=== PATIENT | female | born 1990 | race Caucasian/White ===

== ENCOUNTER 2016-09-05 20:09 | Emergency (ER) | payer OTHER ==
[~2016-09-05] VITALS: Ht 170.2 cm; Wt 106.0 kg
[~2016-09-05 20:09] MED LIST: ALBU18HF INHALATION; AZIT250T94 PO; CALC600T11 PO; FERR27TA PO; PRED20TA PO; PREN1TAB49 PO
[2016-09-05 20:11] VITALS: Ht 170.2 cm; Wt 106.0 kg
[2016-09-05] MEDS ORDERED: ACETAMINOPHEN 500 MG TAB PO STA (20:24)
[2016-09-05] MEDS ORDERED: KETOROLAC 60 MG INJ IM STA (20:24)
[2016-09-05] MEDS ORDERED: IBUP-1542 PO (20:37)
[2016-09-05] MEDS ORDERED: PEN500 PO (20:37)
--- NOTE | 2016-09-05 20:45 | ERD ---
ER Documentation Chief Complaint Date/Time DATE: 09/05/16 TIME: 20:39 Chief Complaint SORE THROAT WITH FEVER X 2 WEEKS HPI 26-year-old female presents here in emergency department for complaints of sore throat and fever for 2 weeks. Patient described the pain as throbbing pain, 6/10 , is worse upon swallowing. Patient did not take any medication any medications to help symptoms. Patient denies any sick contacts. Patient does not have any shortness breath or wheezing. Patient does not have any stridor. ROS All systems reviewed and are negative except as per history of present illness. Medications Home Meds Active Scripts Penicillin V Potassium* (Penicillin V K*) 500 Mg Tab, 500 MG PO QID for 10 Days , TAB Prov:HELDER DO NP 09/05/16 Ibuprofen* (Motrin*) 600 Mg Tab, 600 MG PO Q6H Y for PAIN AND OR ELEVATED TEMP, #30 TAB Prov:HELDER DO NP 09/05/16 Albuterol Sulfate* (Ventolin HFA*) 18 Gm Hfa.aer.ad, 2 PUFF INHALATION Q4H, #1 INHALER Prov:BEBA WYATT MD 12/29/15 Azithromycin* (Zithromax*) 250 Mg Tablet, 250 MG PO .ZPACK DIRECTED, #6 TAB TAKE 500 MG (2 TABS) THE FIRST DAY THEN 250 MG (1 TAB) DAYS 2-5 Prov:BEBA WYATT MD 12/29/15 Prednisone* (Prednisone*) 20 Mg Tab, 40 MG PO DAILY for 5 Days, TAB Prov:BEBA WYATT MD 12/29/15 Reported Medications Calcium Carbonate* (Calcium Carbonate*) 600 MG Ca Tab, 600 MG PO, TAB 11/11/14 Vits W-Ca,Fe,Fa(<1MG) () 1 Tab Tablet, 1 PO DAILY 08/04/11 Ferrous Sulfate (Iron) 1 Tab Tablet, 1 PO DAILY 08/04/11 Allergies Allergies: Coded Allergies: No Known Drug Allergies (Verified Allergy, Unknown, 12/29/15) PMhx/Soc Medical and Surgical Hx: pt denies Medical Hx, pt denies Surgical Hx History of Surgery: No Anesthesia Reaction: No Hx Neurological Disorder: No Hx Respiratory Disorders: No Hx Cardiac Disorders: No Hx Psychiatric Problems: No Hx Miscellaneous Medical Probl: No Hx Alcohol Use: No Hx Substance Use: No Hx Tobacco Use: No Smoking Status: Never smoker FmHx Family History: No coronary disease, No diabetes, No other Physical Exam Vitals Vital Signs Date Time Temp Pulse Resp B/P Pulse Ox O2 Delivery O2 Flow Rate FiO2 09/05/16 21:03 100.3 105 16 122/78 98 Room Air 09/05/16 20:11 99.8 130 18 127/80 98 Physical Exam GENERAL: The patient is well developed and appropriate for usual state of health, in no apparent distress. HEENT: Atraumatic. Ears: Normal tympanic membrane, no erythema or bulging. No ear canal swelling. No ear discharge. Nose: normal nasal turbinates, no erythema or swelling. Normal nasal discharge. Throat: oropharynx erythematous with + tonsillar swelling and tonsillar exudates noted. No lymphadenopathy. CHEST: Clear to auscultation bilaterally. There are no rales, wheezes or rhonchi. HEART: Regular rate and rhythm. No murmurs, clicks, rubs or gallops. No S3 or S4. ABDOMEN: Soft, nontender and nondistended. Good bowel sounds. No rebound or guarding. No gross peritonitis. No gross organomegaly or masses. No Santos sign or McBurney point tenderness. BACK: No midline or flank tenderness. EXTREMITIES: Equal pulses bilaterally. There is no peripheral clubbing, cyanosis or edema. No focal swelling or erythema. Full range of motion. Grossly neurovascularly intact. NEURO: Alert and oriented. Cranial nerves 2-12 intact. Motor strength in all 4 extremities with 5/5 strength. Sensation grossly intact. Normal speech and gait. SKIN: There is no apparent rash or petechia. The skin is warm and dry. HEMATOLOGIC AND LYMPHATIC: There is no evidence of excessive bruising or lymphedema. No gross cervical, axillary, or inguinal lymphadenopathy. Results 24 hrs Current Medications Medications (Trade) Dose Ordered Sig/[place] Route PRN Reason Start Time Stop Time Status Last Admin Dose Admin Acetaminophen (Tylenol Tab) 500 mg ONCE STAT PO 09/05/16 20:24 09/05/16 20:26 DC 09/05/16 20:40 Ketorolac Tromethamine (Toradol) 60 mg ONCE STAT IM 09/05/16 20:24 09/05/16 20:26 DC 09/05/16 20:41 Patient was given medicines for fever control here in the emergency department. After treatment, patient temperature improved and lower. Patient appears well and is hemodynamically stable. Patient was given medication for pain here in emergency department, after treatment, patient verbalized feeling much better. Patient's pain is improved. Procedures/MDM Medical decision making: Patient's symptoms most likely consistent with acute bacterial pharyngitis, was likely strep throat, no symptoms of any peritonsillar abscess at this time. No oral airway obstruction noted. No symptoms of sepsis at this time. Patient appears well and is hemodynamically stable. Patient was given for penicillin VK, ibuprofen, is advised to do saltwater gargles, rest, drink a lot of water. Patient is advised to return to emergency department for worsening symptoms. Departure Diagnosis: Primary Impression: Acute bacterial pharyngitis Condition: Stable Patient Instructions: Pharyngitis, Strep (Presumed) HELDER DO NP Sep 05, 2016 20:45
[2016-09-05 21:03] VITALS: BP 122/78; PULSE 105; RESP 16; TEMP 100.3
== END 2016-09-05 21:05 | disposition home or self-care (01) ==
LOC: FTE 20:09
DX: J02.8 Acute pharyngitis due to other specified organisms (principal); B96.89 Other specified bacterial agents as the cause of diseases classified elsewhere
CPT/HCPCS: 96372; J1885; Z7502; Z7610

== ENCOUNTER 2017-08-24 09:55 | Emergency (ER) | END 2017-08-24 10:36 | disposition home or self-care (01) ==